=== PATIENT | female | born 1965 | race African-American/Black ===

== ENCOUNTER 2017-01-17 16:43 | Emergency (ER) | payer SELFPAY | END 2017-01-17 18:00 | disposition home or self-care (01) | LOC: FER 16:43 | DX: S00.93XA Contusion of unspecified part of head, initial encounter (principal); R11.0 Nausea; M54.2 Cervicalgia; I10 Essential (primary) hypertension; Z79.899 Other long term (current) drug therapy; W22.8XXA Striking against or struck by other objects, initial encounter; Y92.69 Other specified industrial and construction area as the place of occurrence of the external cause; Y99.0 Civilian activity done for income or pay | CPT/HCPCS: 99283 ==